=== PATIENT | male | born 1995 | race Caucasian/White ===

== ENCOUNTER 2017-08-13 11:34 | Emergency (ER) | payer OTHER ==
[~2017-08-13 11:34] MED LIST: ACUTANE
--- NOTE | 2017-08-13 11:37 | ER Report ---
History and Physical Time Seen By MD: 11:37 Hx. of Stated Complaint: Fever, sore throat, cough HPI/ROS 22-year-old male has been ill for 2 days fever or sore throat cough has been taking DayQuil and NyQuil for fever relief feels like he is getting no better as friends that have had similar symptoms Allergies: Coded Allergies: No Known Drug Allergies (Unverified , 11/03/16) Home Meds Active Scripts Oseltamivir Phosphate (TAMIFLU) 75 Mg Cap, 75 MG PO BID, #9 CAP Prov:SUMI JULIAN Patricia CAPUTO 08/13/17 Discontinued Reported Medications [Acutane] No Conflict Check 11/03/16 Past Medical/Surgical History negative Reviewed Nurses Notes: Yes Old Medical Records Reviewed: Yes Hx Smoking: No Hx Substance Use Disorder: No Family History of: Other Constitutional Vital Sign - Last 24 Hours 08/13/17 08/13/17 08/13/17 08/13/17 11:38 12:13 12:19 12:43 Temp 100.8 101.3 101.3 100.0 Pulse 112 102 Resp 20 16 B/P (MAP) 137/90 125/86 (99) Pulse Ox 95 Physical Exam 22-year-old male alert and oriented no acute distress HEENT has normocephalic atraumatic tympanic membranes are non-reddened throat is reddened mucopurulent exudate lymphadenopathy posterior auricular bilaterally heart rate regular no murmurs rubs and gallops lungs are clear to auscultation abdomen is soft bowel sounds 4 quadrants moves all extremities no peripheral edema Medical Decision Making Data Points Laboratory Hematology Test 08/13/17 11:45 Influenza Virus Type A (PCR) Negative (NEGATIVE) Influenza Virus Type B (PCR) Positive (NEGATIVE) Group A Streptococcus Screen Negative (NEGATIVE) Chemistry Test 08/13/17 11:45 Influenza Virus Type A (PCR) Negative (NEGATIVE) Influenza Virus Type B (PCR) Positive (NEGATIVE) Group A Streptococcus Screen Negative (NEGATIVE) ED Course/Re-evaluation ED Course tylenol for fever, flu b positive started tamiflu . Re-evaluation feels better after tylenol , able to drink fluids Decision to Disposition Date: Aug 13, 2017 Decision to Disposition Time: 12:45 Depart Departure Latest Vital Signs Vital Signs Date Time Temp Pulse Resp B/P (MAP) Pulse Ox O2 Delivery O2 Flow Rate FiO2 08/13/17 12:43 100.0 102 16 125/86 (99) 95 Impression: Primary Impression: INFLUENZA DUE TO OTH IDENT INFLUENZA VIRUS W OTH MANIFEST Condition: Improved Disposition: HOME OR SELF-CARE Referrals: [facility] 5 Days New Scripts Oseltamivir Phosphate (TAMIFLU) 75 Mg Cap 75 MG PO BID, #9 CAP Prov: SUMI JULIAN 08/13/17 Patient Instructions: H1N1 Influenza in Children (GEN) Additional Instructions: drink fluids, tylenol or motrin for fever SUMI JULIAN Aug 13, 2017 11:37
[2017-08-13] MEDS ORDERED: ACETAMINOPHEN 500 MG TAB PO ONE (11:45)
[2017-08-13] MEDS ORDERED: OSELTAMIVIR PHOS 75 MG CAP PO ONE (12:40)
[2017-08-13] MEDS ORDERED: OSE75 PO (12:41)
[2017-08-13 12:43] VITALS: BP 125/86
== END 2017-08-13 12:57 | disposition home or self-care (01) ==
LOC: ER 11:38
DX: J10.1 Influenza due to other identified influenza virus with other respiratory manifestations (principal)
CPT/HCPCS: 87081; 87502; 87880; 99282